=== PATIENT | female | born 1975 | race Caucasian/White ===

== ENCOUNTER → 2023-05-20 10:29 | Outpatient (CLI) | payer OTHER, MEDICAID, SELFPAY ==
--- NOTE | 2023-05-20 10:31 | DI.RAD.S_ITS ---
PROCEDURE: XR TOE RT MIN 2V INDICATIONS: Pinky toe injury TECHNIQUE: 3 views of the 5th toe(s) acquired. COMPARISON: None. FINDINGS: Bones: There is nondisplaced fracture involving the base of the 5th middle phalanx. No suspicious bony lesions. Soft tissues: No suspicious soft tissue densities. IMPRESSION: Nondisplaced 5th middle phalangeal base fracture. Dictated by: Aj Wilkes M.D. on 05/20/2023 at 13:13 Approved by: Aj Wilkes M.D. on 05/20/2023 at 13:14
== END ==
PROVIDERS: Referring Provider Nurse Practitioner Family; Visit Provider Nurse Practitioner Family
DX: S92.524A Nondisplaced fracture of middle phalanx of right lesser toe(s), initial encounter for closed fracture (principal); X58.XXXA Exposure to other specified factors, initial encounter
CPT/HCPCS: 73660

== ENCOUNTER 2023-12-06 23:57 | Emergency (ER) | payer OTHER, MEDICAID, SELFPAY ==
[2023-12-07 00:03] VITALS: PULSE 103; O2SAT 100
[2023-12-07 00:04] VITALS: BP 179/118; PULSE 103; RESP 20; O2SAT 100
--- NOTE | 2023-12-07 00:06 | ED.FEMALEGU ---
HPI - Female Genitourinary General Chief complaint: Abdominal Pain Stated complaint: cyst on ovaries that are painful Time Seen by Provider: 12/07/23 00:05 History of Present Illness HPI Narrative: 48-year-old female with history of ovarian cyst presents with left-sided pelvic pain. Patient states that she has previously had a hysterectomy with right ovary removed due to extreme painful recurrent cysts. She reportedly was told that she could have her left ovary removed after the age of 51 if she continues to experience symptoms, however she states she was not had a flare-up in nearly 1 year. Patient states that in the last 9 months she moved to [place] from [place] but has not established with an OBGYN in the area. Related Data Home Medications Medication Instructions Recorded Confirmed loratadine 10 mg tablet (Claritin) 10 mg PO DAILY 05/20/23 06/09/23 Previous Rx's Medication Instructions Recorded cyclobenzaprine 5 mg tablet 5 mg PO ONCE PM #90 tabs 09/29/23 Allergies Allergy/AdvReac Type Severity Reaction Status Date / Time Sulfa (Sulfonamide Allergy Mild Rash Verified 06/09/23 14:36 Antibiotics) Review of Systems Review of Systems Narrative: See HPI Patient History Medical History Peripheral neuropathy Foot pain Fibromyalgia (~1992) Chicken pox (~1979) Vertigo (~2016) Ovarian cyst (~2021) Kidney stones (~1993) Hypertension (~2014) Surgical History Anesthesia History of oophorectomy (~08/2021) History of back surgery (~2011) Tarsal tunnel syndrome (~2010) History of hysterectomy (~2016) Family History Grandfather History of heart disease Stroke Exam Narrative Exam Narrative: Const: Awake, alert, no acute distress, nontoxic appearing Cardiac: regular rate, regular rhythm RESP: unlabored, clear bilaterally, no wheezing GI: Soft, left lower quadrant tenderness to deep palpation MSK: Atraumatic, full range of motion, pulses equal Skin: Warm, Dry, intact, no rashes Neuro: AO x3, CN II-XII grossly intact, moves all extremities Initial Vital Signs Initial Vital Signs: Vital Signs Pulse Rate 103 H 12/07/23 00:03 Pulse Oximetry 100 12/07/23 00:03 Oxygen Delivery Method Room Air 12/07/23 00:03 Course Orders Ordered: ED Orders 12/07/23 00:05 US pelvic complete Stat 12/07/23 00:22 CBC Auto Diff [Complete Blood Count AUTO DIFF] Stat CMP [Comprehensive Metabolic Panel] Stat 12/07/23 00:23 UA Complete [Urinalysis and Microscopic] Stat Discontinued Medications Acetaminophen (Ofirmev) 1,000 mg in 100 mls @ 400 mls/hr IV NOW ONE Stop: 12/07/23 00:19 Last Infusion: 12/07/23 01:04 Dose: Infused Documented By: Admin: 12/07/23 00:39 Dose: 400 mls/hr Documented By: ARMANI Ketorolac Tromethamine (Ketorolac 30 Mg/Ml Vial) 15 mg IV NOW ONE Stop: 12/07/23 00:06 Last Admin: 12/07/23 00:38 Dose: 15 mg Documented By: ARMANI Vital Signs Vital signs: Vital Signs - 8 hr 12/07/23 00:03 12/07/23 00:04 12/07/23 00:04 Temperature Pulse Rate 103 H 103 H Respiratory Rate 20 Blood Pressure 179/118 H Pulse Oximetry 100 100 Oxygen Delivery Method Room Air Room Air 12/07/23 00:07 12/07/23 01:02 12/07/23 01:03 Temperature 97.8 F Pulse Rate 104 H 77 Respiratory Rate 16 19 Blood Pressure 179/118 H Pulse Oximetry 100 99 98 Oxygen Delivery Method Room Air Room Air Room Air 12/07/23 01:03 12/07/23 01:30 12/07/23 01:30 Temperature Pulse Rate 75 Respiratory Rate 18 Blood Pressure 188/96 H 174/91 H Pulse Oximetry 98 Oxygen Delivery Method Room Air MDM - Female Genitourinary Differential Diagnosis Differential diagnosis: Likely urinary tract infection, ovarian cyst and ruptured ovarian cyst Lab Data 12/07/23 00:22 12/07/23 00:22 Labs: Lab Results 12/07/23 12/07/23 Range/Units 00:22 00:23 WBC 10.6 (4.5-11.0) X10^3/uL RBC 4.39 (4.0-5.2) X10^6/uL Hgb 13.1 (12.0-16.0) g/dL Hct 37.9 (36-46) % MCV 86.3 (80-100) fL MCH 29.8 (26-34) PG MCHC 34.5 (30-36) % RDW 13.4 (11.6-14.8) % Plt Count 262 (150-400) X10^3/uL Neut % (Auto) 67.6 (50-75) % Lymph % (Auto) 26.1 (25-40) % [place] % (Auto) 4.9 (3-14) % Eos % (Auto) 0.7 L (2-4) % Baso % (Auto) 0.7 (0-2) % Neut # (Auto) 7200 H (0947-6066) /uL Lymph # (Auto) 2800 (6453-0923) /uL [place] # (Auto) 500 (0-900) /uL Eos # (Auto) 100 (0-450) /uL Baso # (Auto) 100 (0-100) /uL Sodium 135 L (137-145) mmol/L Potassium 3.5 (3.4-5.1) mmol/L Chloride 103 (98-107) mmol/L Carbon Dioxide 26 (22-32) mmol/L BUN 11 (7-17) mg/dL Creatinine 0.82 (0.52-1.04) mg/dL Estimated GFR > 60 (>60) mL/min BUN/Creatinine Ratio 13.4 (6-22) Glucose 103 H (70-100) mg/dL Calcium 9.7 (8.4-10.2) mg/dL Total Bilirubin 0.5 (0.2-1.3) mg/dL AST 21 (14-36) IU/L ALT 25 (<35) IU/L Alkaline Phosphatase 105 (38-126) U/L Total Protein 7.8 (6.3-8.2) g/dL Albumin 4.6 (3.5-5.0) g/dL Globulin 3.2 (1.7-4.1) g/dL Albumin/Globulin Ratio 1.4 (1.0-2.8) Urine Color Yellow Urine Appearance Clear Urine pH 6.0 (4.5-8.0) Ur Specific [place] 1.010 (1.000-1.035) Urine Protein Negative (Negative) Urine Glucose (UA) Negative (Negative) g/dL Urine Ketones Negative (NEGATIVE) Urine Occult Blood Trace-intact (Negative) Urine Nitrate Negative (Negative) Urine Bilirubin Negative (NEGATIVE) Urine Urobilinogen 0.2 (0.2) E.U./dL Ur Leukocyte Esterase Negative (NEGATIVE) Urine RBC 0-1/hpf (0-5/HPF) Urine WBC None seen (0-5/HPF) Ur Squamous Epith Cells 1-5 /hpf (0-5/HPF) Urine Bacteria Occasional (0-1) (None) Ur Culture Indicated? Cult not indicated Vol Urine Centrifuged 10ml (spun) Imaging Data US - PATIENT REGISTRATION SPECIALIST: Radiologist's Impression: PROCEDURE: US PELVIC COMPLETE INDICATIONS: LEFT PELVIC PAIN; HISTORY CYSTS TECHNIQUE: Real-time scanning was performed of the pelvic organs, with image documentation. Additional endovaginal scanning was necessary due to incomplete visualization of the adnexal and endometrial structures by transabdominal scanning. COMPARISON: Outside Film, US, US PELVIC COMPLETE WITH TRANSVAGINAL, 06/22/2017, 11:10. Outside Film, CT, CT ABDOMEN PELVIS WITH CONTRAST, 06/22/2017, 9:59. FINDINGS: Uterus: Uterus is absent. Ovaries: Right ovary is absent. Left ovary measures 4.8 x 2.9 x 2.8 cm. Less than 12 ovarian follicles. Left ovarian cyst measuring 2.8 x 2.7 x 2.4 cm. Layering debris within the cyst. No internal vascularity. Simple left ovarian cyst measuring 1.5 cm. Other: No pathologic free abdominal or pelvic fluid. IMPRESSION: 1. Left ovarian cyst measuring 2.8 cm with layering debris. Typically benign. 2. Uterus is surgically absent. We strive to produce accurate, complete, and clear reports of imaging services. To assist us in improving patient care, this report was composed using standard report templates and voice recognition software. Therefore, it may contain abnormal punctuation, insertions and/or omissions. Occasional wrong-word or sound-alike substitutions may occur. Though we review the report and make efforts to correct it, we do recommend that the report be read carefully in proper context to recognize any text inaccuracies. Dictated by: Rupesh Hurd M.D. on 12/07/2023 at 1:15 Approved by: Rupesh Hurd M.D. on 12/07/2023 at 1:18 PROCEDURE: US PELVIC COMPLETE MDM Narrative Medical decision making narrative: Nontoxic patient with left-sided pain concerning for repeat hemorrhagic cyst. No recent imaging, she states that she has had over a year since her last incident. Patient stated that she did not want any strong medications for pain, IV Tylenol and Toradol ordered. Laboratory work is reviewed, WBC count 10.6, hemoglobin 13.1, platelet count 262, sodium 135, potassium 3.5, creatinine 0.82, normal liver enzymes. Urine negative for signs of infection. Ultrasound shows 2.8 cm cyst on the left-hand side without signs of active hemorrhage. No evidence of torsion. Lab and imaging findings discussed with the patient at bedside, she has had some relief with the pain medications administered. She will follow up with OBGYN, a local referral has been provided. Recommended Tylenol and ibuprofen as needed for pain. Patient requested a note for work, which was provided. Discharge Plan Departure Patient Disposition: Home Clinical Impression: Complex cyst of left ovary Instructions: DI for Ovarian Cyst Activity Restrictions/Additional Instructions: Your ultrasound today shows a complex cyst on your left ovary, no signs of torsion. Continue to take Tylenol and ibuprofen as needed for pain, follow up with OBGYN if your pain persists and you feel you need to pursue oophorectomy. Prescriptions: No Action loratadine [Claritin] 10 mg tablet 10 mg PO DAILY cyclobenzaprine 5 mg tablet 5 mg PO ONCE PM Qty: 90 0RF Referrals: Ambar Girard MD [Primary Care Provider] - Analia De La Cruz MD [Physician] - Stand Alone Forms: Patient Portal/API, Work Release Note
[2023-12-07 00:07] VITALS: BP 179/118; PULSE 104; RESP 16; TEMP 36.6; O2SAT 100; BMI 34.0
[2023-12-07 00:32] LABS: Appearance Urine UA CLEAR; Bilirubin Urine UA NEGATIVE (NEGATIVE); Color Urine UA YELLOW; Glucose Urine UA NEGATIVE (Negative); Ketones Urine UA NEGATIVE (NEGATIVE); Leukocyte Esterase Urine UA NEGATIVE (NEGATIVE); Nitrite Urine UA NEGATIVE (Negative); Occult Blood Urine UA TRACE-INTACT (Negative); Protein Urine UA NEGATIVE (Negative); Urobilinogen Urine UA 0.2 E.U./dL (0.2)
[2023-12-07 00:35] LABS: Add Manual Diff / Slide Review NO; Basophils Absolute Auto 100 /uL (0-100); Basophils Percent Auto 0.7 % (0-2); Eosinophils Absolute Auto 100 /uL (0-450); Eosinophils Percent Auto 0.7 % (2-4); Hematocrit 37.9 % (36-46); Hemoglobin 13.1 g/dL (12.0-16.0); Lymphocytes Absolute Auto 2800 /uL (1100-4500); Lymphocytes Percent Auto 26.1 % (25-40); Mean Corpuscular HGB Conc 34.5 % (30-36); Mean Corpuscular Hemoglobin 29.8 PG (26-34); Mean Corpuscular Volume 86.3 fL (80-100); Monocytes Absolute Auto 500 /uL (0-900); Monocytes Percent Auto 4.9 % (3-14); Neutrophils Absolute Auto 7200 /uL (1500-7000); Neutrophils Percent Auto 67.6 % (50-75); Platelet Count 262 X10^3/uL (150-400); Red Blood Cell Count 4.39 X10^6/uL (4.0-5.2); Red Cell Distribution Width 13.4 % (11.6-14.8); White Blood Cell Count 10.6 X10^3/uL (4.5-11.0)
[2023-12-07 00:37] LABS: Bacteria Urine Occasional (0-1); Culture Indicated Urine Cult Not Indicated; RBC Urine 0-1/HPF (0-5/HPF); Squamous Epithelial Cell Urine 1-5 /HPF (0-5/HPF); Urine Volume 10mL (spun); WBC Urine None Seen (0-5/HPF)
[2023-12-07] MEDS: KETOROLAC 30 MG/ML VIAL 15 MG IV (00:38)
[2023-12-07] MEDS: ACETAMINOPHEN IV 1,000 MG/100 ML VIAL 400 MG IV (00:39)
[2023-12-07 00:41] LABS: Alanine Aminotransferase 25 IU/L (<35); Albumin 4.6 g/dL (3.5-5.0); Albumin Globulin Ratio 1.4 (1.0-2.8); Alkaline Phosphatase 105 U/L (38-126); Aspartate Aminotransferase 21 IU/L (14-36); BUN Creatinine Ratio 13.4 (6-22); Bilirubin Total 0.5 mg/dL (0.2-1.3); Blood Urea Nitrogen 11 mg/dL (7-17); Calcium 9.7 mg/dL (8.4-10.2); Carbon Dioxide 26 mmol/L (22-32); Chloride 103 mmol/L (98-107); Estimated Glomerular Filt Rate > 60 mL/min (>60); Globulin 3.2 g/dL (1.7-4.1); Glucose 103 mg/dL (70-100); HEMOLYSIS < 15 (0-50); Potassium 3.5 mmol/L (3.4-5.1); Sodium 135 mmol/L (137-145); Total Protein 7.8 g/dL (6.3-8.2)
[2023-12-07 01:02] VITALS: O2SAT 99
[2023-12-07 01:03] VITALS: BP 188/96; PULSE 77; RESP 19; O2SAT 98
[2023-12-07 01:30] VITALS: BP 174/91; PULSE 75; RESP 18; O2SAT 98
== END 2023-12-07 01:43 | disposition home or self-care (01) ==
PROVIDERS: Emergency Provider Emergency Medicine; PCP Family Medicine
DX: N83.202 Unspecified ovarian cyst, left side (principal); Z90.710 Acquired absence of both cervix and uterus; Z87.42 Personal history of other diseases of the female genital tract
CPT/HCPCS: 36415; 76830; 76856; 80053; 81001; 85025; 93976; 96365; 96375; 99284; J0136; J1885

== ENCOUNTER → 2023-12-08 15:54 | Outpatient (CLI) | payer OTHER, MEDICAID, SELFPAY | PROVIDERS: PCP Family Medicine; Referring Provider Family Medicine; Visit Provider Family Medicine | DX: Z11.1 Encounter for screening for respiratory tuberculosis (principal); Z02.1 Encounter for pre-employment examination | CPT/HCPCS: 36415; 86480 ==

== ENCOUNTER → 2023-12-15 07:51 | Outpatient (CLI) | payer OTHER, MEDICAID, SELFPAY ==
--- NOTE | 2023-12-15 07:52 | DI.MG.S_ITS ---
BILATERAL DIGITAL SCREENING MAMMOGRAM 3D/2D WITH CAD: 12/15/2023 CLINICAL: Routine screening. Comparison is made to exams dated: 12/04/2022 mammogram, 09/26/2021 mammogram, and 07/14/2019 mammogram - outside facility. Both breasts are heterogeneously dense, which may obscure small masses (category c / 51-75% glandular tissue). Current study was also evaluated with a Computer Aided Detection (CAD) system. There is a biopsy clip in the left breast. There is an asymmetry in the left breast middle depth central to the nipple seen on the craniocaudal view only. No other significant masses, calcifications, or other findings are seen in either breast. IMPRESSION: INCOMPLETE: NEEDS ADDITIONAL IMAGING EVALUATION The asymmetry in the left breast is indeterminate. Needs additional imaging evaluation. Recommend diagnostic left breast mammogram and ultrasound. Based on the Tyrer Cuzick model (a risk assessment model) the patient's lifetime risk is 7.4% and her 10 year risk is 1.5%. According to the ACR, ACS, and NCCN guidelines, an annual breast MRI exam along with mammogram is recommended if the patient's lifetime risk is 20% or greater. This exam was interpreted at Station ID: [id number]. NOTE: For mammograms, a report in lay terms will be sent to the patient. Approximately 15% of breast malignancies will not be visualized mammographically. In the management of a palpable breast mass, a negative mammogram must not discourage biopsy of a clinically suspicious lesion. Electronically Signed By: Alyson Silva M.D., Ph.D. eb/:12/15/2023 15:35:57 letter sent: Additional Imaging Needed ACR BI-RADS Category 0: Incomplete 3340F
== END ==
PROVIDERS: PCP Family Medicine; Referring Provider Family Medicine; Visit Provider Family Medicine
DX: Z12.31 Encounter for screening mammogram for malignant neoplasm of breast (principal); R92.333 Mammographic heterogeneous density, bilateral breasts
CPT/HCPCS: 77063; 77067

== ENCOUNTER 2023-12-31 12:41 | Emergency (ER) | payer OTHER, MEDICAID, SELFPAY ==
[2023-12-31 12:45] VITALS: BP 197/105; PULSE 95; RESP 14; TEMP 36.6; O2SAT 100; BMI 33.2
[2023-12-31 13:11] LABS: Add Manual Diff / Slide Review NO; Basophils Absolute Auto 0 /uL (0-100); Basophils Percent Auto 0.4 % (0-2); Eosinophils Absolute Auto 100 /uL (0-450); Eosinophils Percent Auto 1.1 % (2-4); Hematocrit 37.9 % (36-46); Hemoglobin 12.9 g/dL (12.0-16.0); Lymphocytes Absolute Auto 1900 /uL (1100-4500); Lymphocytes Percent Auto 23.4 % (25-40); Mean Corpuscular Hemoglobin 29.8 PG (26-34); Mean Corpuscular Volume 87.7 fL (80-100); Monocytes Absolute Auto 600 /uL (0-900); Monocytes Percent Auto 7.6 % (3-14); Neutrophils Absolute Auto 5500 /uL (1500-7000); Neutrophils Percent Auto 67.5 % (50-75); Platelet Count 244 X10^3/uL (150-400); Red Blood Cell Count 4.32 X10^6/uL (4.0-5.2); White Blood Cell Count 8.1 X10^3/uL (4.5-11.0)
[2023-12-31 13:22] LABS: BUN Creatinine Ratio 12.6 (6-22); Blood Urea Nitrogen 11 mg/dL (7-17); Calcium 9.1 mg/dL (8.4-10.2); Carbon Dioxide 25 mmol/L (22-32); Chloride 106 mmol/L (98-107); Estimated Glomerular Filt Rate > 60 mL/min (>60); Glucose 104 mg/dL (70-100); HEMOLYSIS < 15 (0-50); Potassium 3.8 mmol/L (3.4-5.1); Sodium 137 mmol/L (137-145)
--- NOTE | 2024-01-02 19:38 | ED.FEMALEGU ---
HPI - Female Genitourinary General Chief complaint: Vaginal Bleeding Stated complaint: hemorrage sent by PCP Source: patient Mode of arrival: Ambulatory History of Present Illness HPI Narrative: Patient left without seeing a medical provider Related Data Home Medications Medication Instructions Recorded Confirmed loratadine 10 mg tablet (Claritin) 10 mg PO DAILY 05/20/23 06/09/23 Previous Rx's Medication Instructions Recorded cyclobenzaprine 5 mg tablet 5 mg PO ONCE PM #90 tabs 09/29/23 Allergies Allergy/AdvReac Type Severity Reaction Status Date / Time Sulfa (Sulfonamide Allergy Mild Rash Verified 12/31/23 12:45 Antibiotics) Patient History Medical History Peripheral neuropathy Foot pain Fibromyalgia (~1992) Chicken pox (~1979) Vertigo (~2016) Ovarian cyst (~2021) Kidney stones (~1993) Hypertension (~2014) Surgical History Anesthesia History of oophorectomy (~08/2021) History of back surgery (~2011) Tarsal tunnel syndrome (~2010) History of hysterectomy (~2016) Family History Grandfather History of heart disease Stroke alcohol intake frequency: holidays/special occasions only Substance Use Type: does not use Exam Initial Vital Signs Initial Vital Signs: Vital Signs Temperature 97.9 F 12/31/23 12:45 Pulse Rate 95 H 12/31/23 12:45 Respiratory Rate 14 12/31/23 12:45 Blood Pressure 197/105 H 12/31/23 12:45 Pulse Oximetry 100 12/31/23 12:45 Oxygen Delivery Method Room Air 12/31/23 12:45 MDM - Female Genitourinary Lab Data 12/31/23 13:02 12/31/23 13:02 Labs: Lab Results 12/31/23 Range/Units 13:02 WBC 8.1 (4.5-11.0) X10^3/uL RBC 4.32 (4.0-5.2) X10^6/uL Hgb 12.9 (12.0-16.0) g/dL Hct 37.9 (36-46) % MCV 87.7 (80-100) fL MCH 29.8 (26-34) PG MCHC 34.0 (30-36) % RDW 14.0 (11.6-14.8) % Plt Count 244 (150-400) X10^3/uL Neut % (Auto) 67.5 (50-75) % Lymph % (Auto) 23.4 L (25-40) % [place] % (Auto) 7.6 (3-14) % Eos % (Auto) 1.1 L (2-4) % Baso % (Auto) 0.4 (0-2) % Neut # (Auto) 5500 (6645-5484) /uL Lymph # (Auto) 1900 (8357-3584) /uL [place] # (Auto) 600 (0-900) /uL Eos # (Auto) 100 (0-450) /uL Baso # (Auto) 0 (0-100) /uL Sodium 137 (137-145) mmol/L Potassium 3.8 (3.4-5.1) mmol/L Chloride 106 (98-107) mmol/L Carbon Dioxide 25 (22-32) mmol/L BUN 11 (7-17) mg/dL Creatinine 0.87 (0.52-1.04) mg/dL Estimated GFR > 60 (>60) mL/min BUN/Creatinine Ratio 12.6 (6-22) Glucose 104 H (70-100) mg/dL Calcium 9.1 (8.4-10.2) mg/dL Blood Type B Negative Antibody Screen Negative Discharge Plan Departure Patient Disposition: Left Without Being Seen Clinical Impression: Patient left before evaluation by physician Prescriptions: No Action loratadine [Claritin] 10 mg tablet 10 mg PO DAILY cyclobenzaprine 5 mg tablet 5 mg PO ONCE PM Qty: 90 0RF
== END 2023-12-31 15:45 | disposition left against medical advice (07) ==
PROVIDERS: Emergency Provider Emergency Medicine; PCP Family Medicine
DX: N93.9 Abnormal uterine and vaginal bleeding, unspecified (principal)
CPT/HCPCS: 36415; 80048; 85025; 86850; 86900; 86901; 99281

== ENCOUNTER → 2024-01-10 10:20 | Outpatient (CLI) | payer OTHER, MEDICAID, SELFPAY ==
--- NOTE | 2024-01-10 10:22 | DI.MG.S_ITS ---
UNILATERAL LEFT DIGITAL DIAGNOSTIC MAMMOGRAM 3D/2D WITH ADDITIONAL VIEWS: 01/10/2024 CLINICAL: Additional evaluation requested from prior study. Comparison is made to exams dated: 12/15/2023 mammogram - [facility], 12/04/2022 mammogram, and 05/29/2022 mammogram - outside facility. The left breast is heterogeneously dense, which may obscure small masses (category c / 51-75% glandular tissue). The asymmetry seen on recent screening mammogram did not persist with additional imaging and is consistent with superimposition of normal breast tissue. There is a biopsy clip in the left breast. No significant masses, calcifications, or other findings are seen in the breast. IMPRESSION: BENIGN Superimposition of normal breast tissue. Status post left breast needle biopsy. No mammographic evidence of malignancy. A 1 year screening mammogram is recommended. Findings and recommendations were conveyed to the patient during today's evaluation. Based on the Tyrer Cuzick model (a risk assessment model) the patient's lifetime risk is 7.4% and her 10 year risk is 1.5%. According to the ACR, ACS, and NCCN guidelines, an annual breast MRI exam along with mammogram is recommended if the patient's lifetime risk is 20% or greater. This exam was interpreted at Station ID: [id number]. NOTE: For mammograms, a report in lay terms will be sent to the patient. Approximately 15% of breast malignancies will not be visualized mammographically. In the management of a palpable breast mass, a negative mammogram must not discourage biopsy of a clinically suspicious lesion. Electronically Signed By: Alyson Silva M.D., Ph.D. eb/:01/10/2024 11:04:20 letter sent: Normal Exam ACR BI-RADS Category 2: Benign Finding(s) 3342F
== END ==
PROVIDERS: PCP Family Medicine; Referring Provider Family Medicine; Visit Provider Family Medicine
DX: R92.8 Other abnormal and inconclusive findings on diagnostic imaging of breast (principal); R92.332 Mammographic heterogeneous density, left breast
CPT/HCPCS: 77065; G0279

== ENCOUNTER → 2024-09-11 12:32 | Outpatient (CLI) | payer OTHER, SELFPAY ==
[2024-09-14 11:40] LABS: QuantiFERON Mitogen Value >10.00 IU/mL (.); QuantiFERON Nil Value 0.03 IU/mL (.); QuantiFERON TB Gold Plus Negative (Negative); QuantiFERON TB1 Ag Value 0.05 IU/mL (.); QuantiFERON TB2 Ag Value 0.04 IU/mL (.)
== END ==
PROVIDERS: PCP Family Medicine; Referring Provider Family Medicine; Visit Provider Family Medicine
DX: Z11.1 Encounter for screening for respiratory tuberculosis (principal)
CPT/HCPCS: 36415; 86480

== ENCOUNTER → 2024-11-08 10:43 | Outpatient (CLI) | payer OTHER, SELFPAY | PROVIDERS: PCP Family Medicine; Visit Provider Student in an Organized Health Care Education/Training Program | DX: R30.0 Dysuria (principal); N89.8 Other specified noninflammatory disorders of vagina | CPT/HCPCS: 87077; 87086; 87210 ==